=== PATIENT | female | born 1995 | race Caucasian/White ===

== ENCOUNTER 2020-09-17 23:57 | Emergency (ER) | payer OTHER ==
[~2020-09-17] VITALS: Ht 149.9 cm; Wt 88.9 kg
[2020-09-18 00:08] VITALS: BP_SYST 130
[2020-09-18] MEDS ORDERED: NACL 0.9% 1,000 ML IV ONE (00:45)
[2020-09-18] MEDS ORDERED: ONDANSETRON HCL 4 MG/2 ML VIAL IVP ONE (00:45)
[2020-09-18] MEDS ORDERED: AMPICILLIN SODIUM/SULBACTAM NA 3 GM in NS 100 ML IV ONE (00:45)
[2020-09-18] MEDS ORDERED: MORPHINE SULFATE 10 MG/ML VIAL IVP ONE (00:45)
[2020-09-18] MEDS ORDERED: AMPICILLIN SODIUM/SULBACTAM NA 3 GM VIAL ONE (00:52)
[2020-09-18 01:30] LABS: BASOPHILS % (AUTO) 0.4 % (0.0-2.0); EOSINOPHILS # (AUTO) 0.2 K/uL (0.0-0.4); EOSINOPHILS % (AUTO) 1.9 % (0.0-4.0); HEMATOCRIT 40.9 % (36-48); HEMOGLOBIN 13.5 g/dL (12.0-16.0); LYMPHOCYTES # (AUTO) 3.9 K/uL (1.0-5.5); MEAN CORPUSCULAR HEMOGLOBIN 27 pg (27-31); MEAN CORPUSCULAR HGB CONC 33 % (32-36); MEAN CORPUSCULAR VOLUME 82 fL (79.0-98.0); MONOCYTES # (AUTO) 0.7 K/uL (0.0-1.0); MONOCYTES % (AUTO) 5.9 % (1.7-9.3); NEUTROPHILS # (AUTO) 6.3 K/uL (1.8-7.7); NEUTROPHILS % (AUTO) 56.8 % (40.0-70.0); PLATELET COUNT (AUTO) 351 K/uL (130-430); RED BLOOD CELL COUNT(AUTO) 4.97 MIL/uL (4.2-6.2); RED CELL DISTRIBUTION WIDTH 13.4 % (9.0-15.0); WHITE BLOOD COUNT (AUTO) 11.2 K/uL (4.8-10.8)
[2020-09-18 01:37] LABS: CALCIUM 8.8 mg/dL (8.4-11.0); CREATININE 0.67 mg/dL (0.55-1.30); POTASSIUM 3.5 mmol/L (3.5-5.1)
[2020-09-18 01:42] LABS: ALBUMIN 3.9 g/dL (3.4-4.8); TOTAL BILIRUBIN 0.3 mg/dL (0.0-1.0)
[2020-09-18 02:24] LABS: BILIRUBIN,URINE NEGATIVE (NEGATIVE); BLOOD, URINE NEGATIVE (NEGATIVE); CLARITY/URINE CLEAR (CLEAR); COLOR,URINE YELLOW (YELLOW); GLUCOSE,URINE NEGATIVE (NEGATIVE); KETONES,URINE NEGATIVE (NEGATIVE); LEUKOCYTE ESTERASE ,URINE NEGATIVE (NEGATIVE); NITRITE, URINE NEGATIVE (NEGATIVE); PROTEIN URINE NEGATIVE (NEGATIVE); UROBILINOGEN,URINE 0.2 (0.2-1.0)
[2020-09-18] MEDS ORDERED: KETAMINE HCL 500 MG/10 ML VIAL ONE (04:28)
[2020-09-18] MEDS ORDERED: MIDAZOLAM HCL 5 MG/5 ML VIAL ONE (04:29)
[2020-09-18] MEDS ORDERED: MIDAZOLAM HCL 5 MG/5 ML VIAL IVP ONE (04:30)
[2020-09-18] MEDS ORDERED: KETAMINE 30 MG/3 ML SYRINGE IV ONE (04:30)
[2020-09-18] MEDS ORDERED: PHE25 PO (05:55)
[2020-09-18] MEDS ORDERED: AMOX-426 PO (05:55)
[2020-09-18] MEDS ORDERED: IBUP-1969 PO (05:55)
[2020-09-18 07:14] VITALS: BP_SYST 134
== END 2020-09-18 07:14 | disposition home or self-care (01) ==
LOC: SED 23:57
DX: K61.0 Anal abscess (principal)
CPT/HCPCS: 36415; 46050; 74177; 76376; 80053; 81003; 84703; 85025; 96361; 96365; 96375; 99152; 99285; J0295; J2250; J2270; J2405; J7030; Q9967

== ENCOUNTER 2020-09-24 14:43 | Inpatient (IN) | payer OTHER, SELFPAY ==
[~2020-09-24] VITALS: Ht 154.9 cm; Wt 87.1 kg
[2020-09-24 14:43] VITALS: BP_SYST 146
[~2020-09-24 14:43] MED LIST: AMOX-426 PO; IBUP-1969 PO; PHE25 PO
--- NOTE | 2020-09-24 14:43 | NUR ---
BROUGHT BACK TO BED #6 AND TRIAGED. REPORT GIVEN TO FLAKO
[2020-09-24] MEDS ORDERED: MORPHINE 4 MG INJ. 4 MG/ML VIAL IVP ONE (15:30)
[2020-09-24] MEDS ORDERED: NACL 0.9% 1,000 ML IV ONE (15:30)
[2020-09-24] MEDS ORDERED: DIPHENHYDRAMINE INJ 50 MG/ML VIAL IVP ONE (15:30)
[2020-09-24] MEDS ORDERED: PIPERACILLIN/TAZO 3.38 GM in D5W 50 ML IV ONE (15:30)
--- NOTE | 2020-09-24 15:30 | NUR ---
pt arrives from home w/ a non healing abcess to the left gluteal fold. Pt has had the abcess drained and packed. Pt has been experinecing increasing pain on the site
--- NOTE | 2020-09-24 15:35 | NUR ---
ER at bedside examining patient.
--- NOTE | 2020-09-24 15:38 | NUR ---
# 20 gauge angiocath placed to RAC. Use of asceptic technique. Opsite placed over site. Blood return noted. Blood for lab drawn from site. Flushed with 10 cc of normal saline. No evidence of infiltration noted. Patient tolerated well.
--- NOTE | 2020-09-24 15:42 | NUR ---
rapid covid swab collected and sent to lab
--- NOTE | 2020-09-24 15:45 | NUR ---
Carri nance in [facility] - 09/24/20 at 1611 by SDNURGD rapid covid swab collected and sent to the lab
[2020-09-24] MEDS ORDERED: PIPERACILLIN/TAZOBACTAM 3.375 GM/VIAL (ZOSYN) IV ONE (15:53)
--- NOTE | 2020-09-24 15:55 | NUR ---
Medicated the pt w/ Benadryl and Morphine per MD order. Rocephin currently infusing per MD order
[2020-09-24 16:02] LABS: BASOPHILS # (AUTO) 0.1 K/uL (0.0-0.2); BASOPHILS % (AUTO) 0.5 % (0.0-2.0); EOSINOPHILS # (AUTO) 0.2 K/uL (0.0-0.4); HEMATOCRIT 39.7 % (36-48); HEMOGLOBIN 12.9 g/dL (12.0-16.0); LYMPHOCYTES # (AUTO) 2.2 K/uL (1.0-5.5); LYMPHOCYTES % (AUTO) 23.1 % (20.5-51.5); MEAN CORPUSCULAR HEMOGLOBIN 27 pg (27-31); MEAN CORPUSCULAR HGB CONC 33 % (32-36); MEAN CORPUSCULAR VOLUME 82 fL (79.0-98.0); MONOCYTES # (AUTO) 0.7 K/uL (0.0-1.0); MONOCYTES % (AUTO) 7.7 % (1.7-9.3); NEUTROPHILS # (AUTO) 6.3 K/uL (1.8-7.7); NEUTROPHILS % (AUTO) 66.7 % (40.0-70.0); PLATELET COUNT (AUTO) 324 K/uL (130-430); RED BLOOD CELL COUNT(AUTO) 4.83 MIL/uL (4.2-6.2); RED CELL DISTRIBUTION WIDTH 13.2 % (9.0-15.0); WHITE BLOOD COUNT (AUTO) 9.5 K/uL (4.8-10.8)
[2020-09-24 16:05] LABS: BILIRUBIN,URINE NEGATIVE (NEGATIVE); BLOOD, URINE NEGATIVE (NEGATIVE); CLARITY/URINE CLEAR (CLEAR); COLOR,URINE YELLOW (YELLOW); GLUCOSE,URINE NEGATIVE (NEGATIVE); KETONES,URINE NEGATIVE (NEGATIVE); LEUKOCYTE ESTERASE ,URINE NEGATIVE (NEGATIVE); NITRITE, URINE NEGATIVE (NEGATIVE); PROTEIN URINE NEGATIVE (NEGATIVE); UROBILINOGEN,URINE 0.2 (0.2-1.0)
--- NOTE | 2020-09-24 16:15 | NUR ---
called for a Med Surg bed
[2020-09-24 16:26] LABS: CALCIUM 8.6 mg/dL (8.4-11.0); CREATININE 0.83 mg/dL (0.55-1.30); POTASSIUM 3.8 mmol/L (3.5-5.1)
[2020-09-24 16:30] LABS: INR 0.9 (0.8-1.2); PROTHROMBIN TIME 9.3 SECS (9.5-12.5)
[2020-09-24 16:32] LABS: ALBUMIN 3.4 g/dL (3.4-4.8); TOTAL BILIRUBIN 0.3 mg/dL (0.0-1.0)
--- NOTE | 2020-09-24 16:53 | NUR ---
Patient will be admitted to care of Dr. Caballero. Admitted to Med Surg unit. Will go to room 130-b. Belongings list completed. Complete and up to date summary report printed. SBAR report to be given at bedside with opportunity for questions.
--- NOTE | 2020-09-24 16:55 | NUR ---
Medication reconciliation completed with information provided by pt. Any prior medication reconciliation on file was reviewed and corrected.
--- NOTE | 2020-09-24 17:14 | NUR ---
CONSULTATION PAGED REASON FOR CONSULTATION:RECTAL ABSCESS WAS CONSULT CALLED?Y PERSON WHO WAS NOTIFIED:JORDAN CONSULTING PHYSICIAN:ALEXANDRIA CRUMP HOUSEKEEPING ASSISTANT SPECIALTY:SURGEON HOUSEKEEPING ASSISTANT PHONE NUMBER:[phone] REQUESTING PHYSICIAN:OJSE DANIEL BROCK
--- NOTE | 2020-09-24 17:15 | NUR ---
Notes Received patient from ER awake and oriented. Pain is control at this time. IVF of NS infusing from ER at this time.Oriented to call light use, phone and restroom. Provided water and supplies, no distress. enc to call for help as needed.
--- NOTE | 2020-09-24 17:20 | NUR ---
Notes Spoke to DR. CASILLAS and made aware of consults.
[2020-09-24 17:41] VITALS: BP_SYST 121
[2020-09-24 17:43] VITALS: BP_SYST 121
[2020-09-24] MEDS ORDERED: NALOXONE HCL 0.4 MG/ML AMP (NARCAN) IVP PRN ×2 (17:45)
[2020-09-24] MEDS ORDERED: MORPHINE 2 MG/ML INJ. SYRINGE IVP PRN (17:45)
[2020-09-24] MEDS ORDERED: PROMETHAZINE HCL 25 MG TABLET PO PRN (17:45)
[2020-09-24] MEDS ORDERED: LORazepam 2 MG/ML VIAL IVP PRN (17:45)
[2020-09-24] MEDS ORDERED: IBUPROFEN 600 MG TABLET PO PRN (17:45)
[2020-09-24] MEDS ORDERED: ACETAMINOPHEN 325 MG TABLET PO PRN (17:45)
--- NOTE | 2020-09-24 17:54 | NUR ---
MD rounds Dr. Caballero here to see patient.
[2020-09-24] MEDS ORDERED: PIPERACILLIN/TAZO 3.375/DEX-IS 50 ML IV SCH (18:00)
--- NOTE | 2020-09-24 18:08 | NUR ---
CONSULTATION PAGED REASON FOR CONSULTATION:PERIRECTAL ABSCESS WAS CONSULT CALLED?Y PERSON WHO WAS NOTIFIED:ELEAZAR CONSULTING PHYSICIAN:STEFANO ELLIOTT WEASAND TRIMMER SPECIALTY:ID WEASAND TRIMMER PHONE NUMBER:[phone] REQUESTING PHYSICIAN:JOSE DANIEL BROCK
--- NOTE | 2020-09-24 18:25 | NUR ---
Notes- Resting at this time, Will endorse to take picture on perirectal abscess.
--- NOTE | 2020-09-24 19:50 | NUR ---
RN ROUNDS RECEIVED REPORT FROM DAY NURSE, PATIENT SITTING UP IN BED, AOX4, ON ROOM AIR, DENIES ANY PAIN OR DISCOMFORT AT THIS TIME, VITAL SIGNS STABLE, IV LINE TO RIGHT AC INTACT AND PATENT, SALINE LOCKED, PLAN OF CARE DISCUSSED WITH PATIENT, VERBALIZED UNDERSTANDING COMPLIANT, PATIENT REFUSING TO HAVE LYNCH CATHETER PLACED, ORIENTED TO USE CALL LIGHT FOR NURSE ASSISTANCE, SAFETY MEASURES IN PLACE.
[2020-09-24 20:21] VITALS: BP_SYST 133
[2020-09-24] MEDS: DOCUSATE SODIUM 100 MG CAPSULE PO SCH (20:55)
[2020-09-24] MEDS ORDERED: NORMAL SALINE 5 ML DISP.SYRIN IVF SCH (22:00)
[2020-09-24] MEDS: NORMAL SALINE 5 ML DISP.SYRIN IVF SCH (22:14)
--- NOTE | 2020-09-24 22:19 | NUR ---
RN ROUNDS PATIENT RESTING QUIETLY IN BED, RESPIRATIONS EVEN AND UNLABORED, CALL LIGHT WITHIN REACH, SAFETY MEASURES IN PLACE.
[2020-09-24] MEDS: PIPERACILLIN/TAZO 3.375/DEX-IS 50 ML IV SCH (23:00)
[2020-09-24] MEDS: HYDROcodone/ACETAMIN 10-325 MG TAB PO PRN (23:47)
[2020-09-25 00:09] VITALS: BP_SYST 100
--- NOTE | 2020-09-25 00:39 | NUR ---
RN ROUNDS PATIENT WAS C/O OF PAIN, MEDICATED WITH NORCO 1 TAB FOR PAIN MANAGEMENT, DUE ANTIBIOTICS ADMINISTERED, IV LINE REMAINS INTACT AND PATENT.
[2020-09-25] MEDS: PIPERACILLIN/TAZO 3.375/DEX-IS 50 ML IV SCH ×3 (04:58→18:06)
[2020-09-25] MEDS: NORMAL SALINE 5 ML DISP.SYRIN IVF SCH ×3 (04:59→21:25)
--- NOTE | 2020-09-25 06:43 | NUR ---
RN ROUNDS PATIENT RESTING QUIETLY IN BED, DUE ANTIBIOTICS ADMINISTERED, IV LINE REMAINS INTACT AND PATENT. PICTURE TAKEN OF ABSCESS, PATIENT NEEDS ATTENDED TO, SAFETY AND FALL PRECAUTIONS MAINTAINED.
[2020-09-25 07:08] LABS: BASOPHILS % (AUTO) 0.3 % (0.0-2.0); EOSINOPHILS # (AUTO) 0.3 K/uL (0.0-0.4); EOSINOPHILS % (AUTO) 3.3 % (0.0-4.0); HEMATOCRIT 36.9 % (36-48); HEMOGLOBIN 12.2 g/dL (12.0-16.0); LYMPHOCYTES # (AUTO) 2.7 K/uL (1.0-5.5); LYMPHOCYTES % (AUTO) 33.7 % (20.5-51.5); MEAN CORPUSCULAR HEMOGLOBIN 27 pg (27-31); MEAN CORPUSCULAR HGB CONC 33 % (32-36); MEAN CORPUSCULAR VOLUME 82 fL (79.0-98.0); MONOCYTES # (AUTO) 0.6 K/uL (0.0-1.0); MONOCYTES % (AUTO) 7.3 % (1.7-9.3); NEUTROPHILS # (AUTO) 4.5 K/uL (1.8-7.7); NEUTROPHILS % (AUTO) 55.4 % (40.0-70.0); PLATELET COUNT (AUTO) 307 K/uL (130-430); RED BLOOD CELL COUNT(AUTO) 4.49 MIL/uL (4.2-6.2); RED CELL DISTRIBUTION WIDTH 13.4 % (9.0-15.0); WHITE BLOOD COUNT (AUTO) 8.1 K/uL (4.8-10.8)
[2020-09-25 07:28] LABS: ALBUMIN 2.9 g/dL (3.4-4.8); CALCIUM 8.5 mg/dL (8.4-11.0); CREATININE 0.65 mg/dL (0.55-1.30); POTASSIUM 3.6 mmol/L (3.5-5.1); TOTAL BILIRUBIN 0.2 mg/dL (0.0-1.0)
[2020-09-25 09:00] VITALS: BP_SYST 121
[2020-09-25 09:26] LABS: C-REACTIVE PROTEIN QUANT 2.8 mg/dL (0-0.5)
[2020-09-25 09:40] LABS: CORRECTED WHITE BLOOD COUNT 8.1 K/uL (4.5-11.0)
--- NOTE | 2020-09-25 09:56 | NUR ---
DR BALTAZAR IBRAHIM SURGEON CAME AND SAID NO SURGERY. 3 X TIMES HOTS SITZ BATH AND NEEDS WALKING MANY TIMES.
[2020-09-25] MEDS: DOCUSATE SODIUM 100 MG CAPSULE PO SCH ×2 (10:39→21:13)
[2020-09-25 10:48] LABS: ERYTHROCYTE SEDIMENTATION RATE 13 MM/HR (0-20)
[2020-09-25 12:16] VITALS: BP_SYST 120
[2020-09-25] MEDS: HYDROcodone/ACETAMIN 10-325 MG TAB PO PRN (12:37)
--- NOTE | 2020-09-25 13:25 | NUR ---
WOUND EVALUATION: Wound Consult received from Dr. Binh Caballero. Thank you, Dr. Caballero, for the consult. Patient received in a Pattie Bed with a mattress, awake, alert, and oriented. Patient is unable to turn independently. Bhupendra Score is a 20. Past Medical History: Recurrent Sita-Rectal abscess, s/p I&D of Sita-Rectal abscess, Tonsillectomy. Recent Labs: WBC 8.1, RBC 4.49, hemoglobin 12.2, hematocrit 36.9, ESR 13, chloride 110, alkaline phosphatase 70, C-reactive protein 2.8, serum total protein 5.9, albumin 2.9, PT 9.3, glucose 100 (09/24), 94 (09/25). Microbiology: Blood culture results x2 in progress. Intrinsic factors that delay wound healing: Recurrent non-healing Sita-Rectal Abscess, Hyperglycemia. Extrinsic factors that delay wound healing: Decreased mobility. Wound Assessment: 1. Left Sita-Rectal area: Abscess, present on admission. Site has pink scar tissue, white macerated tissue, and a few small areas of pink tissue. No odor, small yellow purulent drainage. Sita-wound intact. Measures 2.5 cm x 2.9 cm, superficial depth. Recommend: Cleanse wound with normal saline. Apply SurePrep to sita-wound. Cut alginate dressing to size and place over wound site. Cover with nonadhesive foam dressing, cut to size. Secure with transparent dressings. Perform wound care daily, and as needed for dressing soiling or dislodgement. Also recommend: Encourage and assist patient as needed with repositioning side to side only every 2 hours with pillow support and off-load pressure areas with pillows for pressure re-distribution. Offload the left perirectal wound area at all times. Offload, elevate and float bilateral heels with pillows. Perform skin care and monitor skin integrity Q shift. Use moisture barrier cream on buttocks and other moisture susceptible areas QID and as needed for soiling.
--- NOTE | 2020-09-25 19:30 | NUR ---
OPENING NOTES: Received report from dayshift nurse. Patient is resting in bed, alert and oriented. She is on room air, tolerating well. Ensured all safety precautions. Bed is locked and in the lowest position. Call light within reach.
[2020-09-25 20:00] VITALS: BP_SYST 114
[2020-09-26] MEDS: PIPERACILLIN/TAZO 3.375/DEX-IS 50 ML IV SCH ×4 (00:12→18:32)
[2020-09-26 00:15] VITALS: BP_SYST 115
[2020-09-26] MEDS: NORMAL SALINE 5 ML DISP.SYRIN IVF SCH ×3 (05:19→21:37)
[2020-09-26 06:55] LABS: BASOPHILS % (AUTO) 0.4 % (0.0-2.0); EOSINOPHILS # (AUTO) 0.2 K/uL (0.0-0.4); EOSINOPHILS % (AUTO) 2.8 % (0.0-4.0); HEMATOCRIT 39.5 % (36-48); LYMPHOCYTES # (AUTO) 2.6 K/uL (1.0-5.5); LYMPHOCYTES % (AUTO) 29.1 % (20.5-51.5); MEAN CORPUSCULAR HEMOGLOBIN 27 pg (27-31); MEAN CORPUSCULAR HGB CONC 33 % (32-36); MEAN CORPUSCULAR VOLUME 82 fL (79.0-98.0); MONOCYTES # (AUTO) 0.6 K/uL (0.0-1.0); MONOCYTES % (AUTO) 6.9 % (1.7-9.3); NEUTROPHILS # (AUTO) 5.4 K/uL (1.8-7.7); NEUTROPHILS % (AUTO) 60.8 % (40.0-70.0); PLATELET COUNT (AUTO) 321 K/uL (130-430); RED CELL DISTRIBUTION WIDTH 13.4 % (9.0-15.0); WHITE BLOOD COUNT (AUTO) 8.8 K/uL (4.8-10.8)
[2020-09-26 07:07] LABS: CALCIUM 8.6 mg/dL (8.4-11.0); CREATININE 0.67 mg/dL (0.55-1.30); POTASSIUM 3.9 mmol/L (3.5-5.1)
--- NOTE | 2020-09-26 07:26 | NUR ---
CLOSING NOTES: Patient is resting in bed, alert and oriented. She is on room air, tolerating well. IV on RFA with dry and intact dressing. Ensured all safety precautions. Bed is locked and in the lowest position. Call light within reach. All needs were met throughout shift. I have endorse to dayshift nurse.
--- NOTE | 2020-09-26 07:45 | NUR ---
OPENING NOTES PATIENT AAOX 4. LUNGS BILATERALLY CLEAR. OBESE. ABDOMEN SOFT AND NON DISTENDED. ON THE RECTAL WOUND NO DRAINAGE NOTED. DRY. HAS IV ACCESS ON THE RT AC $20 PATENT/DRY. CALL LIGHTS WITHIN REACH. BED LOW POSITION, ALARMED AND LOCKED. WILL CONTINUE TO MONITOR PATIENTS STATUS.
[2020-09-26 08:08] LABS: C-REACTIVE PROTEIN QUANT 2.2 mg/dL (0-0.5)
[2020-09-26] MEDS: DOCUSATE SODIUM 100 MG CAPSULE PO SCH ×2 (09:21→21:36)
[2020-09-26] MEDS: HYDROcodone/ACETAMIN 10-325 MG TAB PO PRN (09:24)
[2020-09-26 09:27] VITALS: BP_SYST 125
[2020-09-26 09:35] LABS: ERYTHROCYTE SEDIMENTATION RATE 16 MM/HR (0-20)
[2020-09-26 12:28] VITALS: BP_SYST 132
[2020-09-26 18:16] VITALS: BP_SYST 122
--- NOTE | 2020-09-26 18:55 | NUR ---
CLOSING NOTES PATIENT WENT TO THE BATHROOM AMBULATORY. STILL WITH RT AC #20 SALINE LOCK. IV ZOZYN GIVEN. NO S/S OF DISTRESS/NOR PAIN NOTED. CALL LIGHTS WITHIN REACH. BED LOW POSITION. ALARMED AND LOCKED. JUST HAD HOT SITZ BATH THE THIRD TIME. INSTRUCTED PATIENT TO HAVE X 3 TIMES A DAY AND WHILE AT HOME. PLASTIC BOTTLE TO USED AT HOME FOR THE SITZ BATH WHEN DISCHARGE. INFORMED PATIENT THAT NITE NURSE WILL THE DRESSING CHANGED ON HER RECTAL AREA. ENDORSED TO INCOMING NURSE.
--- NOTE | 2020-09-26 19:35 | NUR ---
OPENING NOTES PATIENT A&OX4 RESTING IN BED. AMBULATORY. BREATHING NONLABORED TO ROOM AIR. IV ON RAC #20 SALINE LOCKED. PT HAS REGULAR DIET. NO S/S OF DISTRESS. WILL CONTINUE TO MONITOR.
[2020-09-26 20:00] VITALS: BP_SYST 129
--- NOTE | 2020-09-26 21:25 | NUR ---
RN ROUNDS PT TOLERATED MEDICATIONS. GIVEN MOTRIN FOR PAIN.
--- NOTE | 2020-09-26 22:25 | NUR ---
RN ROUNDS PT VITAL SIGNS STABLE. WOUND DRESSING DONE.
--- NOTE | 2020-09-27 | NUR ---
RN ROUNDS PT VITAL SIGNS STABLE. WILL CTM
[2020-09-27] MEDS: PIPERACILLIN/TAZO 3.375/DEX-IS 50 ML IV SCH ×3 (00:39→11:15)
[2020-09-27 00:42] VITALS: BP_SYST 122
[2020-09-27] MEDS: NORMAL SALINE 5 ML DISP.SYRIN IVF SCH ×2 (05:52→13:50)
--- NOTE | 2020-09-27 06:40 | NUR ---
CLOSING NOTE PATIENT A&OX4 RESTING IN BED. AMBULATORY. BREATHING NONLABORED TO ROOM AIR. IV ON RAC #20 SALINE LOCKED. PT HAS REGULAR DIET. NO S/S OF DISTRESS. WILL ENDORSE TO DAYSHIFT RN
[2020-09-27 06:52] LABS: BASOPHILS % (AUTO) 0.4 % (0.0-2.0); EOSINOPHILS # (AUTO) 0.3 K/uL (0.0-0.4); HEMATOCRIT 37.7 % (36-48); HEMOGLOBIN 12.6 g/dL (12.0-16.0); LYMPHOCYTES # (AUTO) 2.9 K/uL (1.0-5.5); LYMPHOCYTES % (AUTO) 31.6 % (20.5-51.5); MEAN CORPUSCULAR HEMOGLOBIN 27 pg (27-31); MEAN CORPUSCULAR HGB CONC 33 % (32-36); MEAN CORPUSCULAR VOLUME 82 fL (79.0-98.0); MONOCYTES # (AUTO) 0.6 K/uL (0.0-1.0); MONOCYTES % (AUTO) 6.9 % (1.7-9.3); NEUTROPHILS # (AUTO) 5.2 K/uL (1.8-7.7); NEUTROPHILS % (AUTO) 58.1 % (40.0-70.0); PLATELET COUNT (AUTO) 330 K/uL (130-430); RED BLOOD CELL COUNT(AUTO) 4.59 MIL/uL (4.2-6.2); RED CELL DISTRIBUTION WIDTH 13.1 % (9.0-15.0)
[2020-09-27 06:53] LABS: CALCIUM 8.5 mg/dL (8.4-11.0); CREATININE 0.86 mg/dL (0.55-1.30); POTASSIUM 4.2 mmol/L (3.5-5.1)
[2020-09-27 08:45] LABS: C-REACTIVE PROTEIN QUANT 2.3 mg/dL (0-0.5)
[2020-09-27] MEDS: DOCUSATE SODIUM 100 MG CAPSULE PO SCH (08:47)
--- NOTE | 2020-09-27 08:48 | NUR ---
Scheduled po medication given per order. Patient resting comfortably in bed with no complaint of pain. Patient stable at this time.
[2020-09-27 08:50] VITALS: BP_SYST 119
[2020-09-27 10:23] LABS: ERYTHROCYTE SEDIMENTATION RATE 16 MM/HR (0-20)
--- NOTE | 2020-09-27 11:15 | NUR ---
Scheduled IV abx given per order. Patient stable at this time.
--- NOTE | 2020-09-27 12:25 | NUR ---
Patient sitting in bed, eating lunch. No distress noted and no complaint of pain. Patient stable at this time.
[2020-09-27 12:34] VITALS: BP_SYST 123
--- NOTE | 2020-09-27 13:50 | NUR ---
Patient resting comfortably in bed with no distress noted. Patient stable.
[2020-09-27] MEDS ORDERED: IBUP-1969 PO (14:15)
[2020-09-27] MEDS ORDERED: LEVO500T89 PO (14:15)
[2020-09-27 14:20] VITALS: BP_SYST 123
--- NOTE | 2020-09-27 16:02 | NUR ---
Discharge instructions Both written and verbal discharge instructions given to patient. Exit care provided. Patient verbalized understanding. Patient given medication reconciliation form. MD discussed with patient the results and treatment provided. Ambulatory with steady gait for discharge to home. Patient in stable condition. ID band removed. Peripheral IV removed intact with no active bleeding; pressure dressing applied to site. Prescription for levofloxacin and ibuprofen given to patient. Patient educated on pain management. All belongings with patient. Patient sitting on side of bed with no complaint of pain.
[2020-09-27 16:23] VITALS: BP_SYST 120
--- NOTE | 2020-09-27 16:30 | NUR ---
Discharge Patient discharged to home in stable condition.
== END 2020-09-27 16:30 | disposition home or self-care (01) | DRG 254 ==
LOC: SED 14:43 → SMU 15:43
PROVIDERS: ADMIT Preventive Medicine Preventive Medicine/Occupational Environmental Medicine; ATTEND Preventive Medicine Preventive Medicine/Occupational Environmental Medicine
DX: K61.1 Rectal abscess (principal); E87.8 Other disorders of electrolyte and fluid balance, not elsewhere classified; L02.31 Cutaneous abscess of buttock; K61.0 Anal abscess; Z20.822 Contact with and (suspected) exposure to COVID-19; R73.9 Hyperglycemia, unspecified; R00.0 Tachycardia, unspecified; R03.0 Elevated blood-pressure reading, without diagnosis of hypertension; L73.2 Hidradenitis suppurativa; Z79.899 Other long term (current) drug therapy
CPT/HCPCS: 36415; 76376; 80048; 80053; 81003; 83605; 85025; 85610-TC; 85651-TC; 85730-TC; 86140; 87040-TC; 87070-TC; 87075-TC; 87186-TC; 96365; 96375; 99285; J1200; J2270; J2543; Q0169; Q9967

== ENCOUNTER 2020-11-11 14:51 | Inpatient (IN) | payer OTHER, SELFPAY ==
[~2020-11-11] VITALS: Ht 149.9 cm; Wt 93.4 kg
[~2020-11-11 14:51] MED LIST changes: -AMOX-426 PO; +LEVO500T89 PO
[2020-11-11 15:09] VITALS: BP_SYST 149
[2020-11-11] MEDS ORDERED: ONDANSETRON HCL 4 MG/2 ML VIAL IVP ONE (19:00)
[2020-11-11] MEDS ORDERED: NACL 0.9% 1,000 ML IV ONE (19:00)
[2020-11-11] MEDS ORDERED: MORPHINE 4 MG INJ. 4 MG/ML VIAL IVP ONE (19:00)
[2020-11-11] MEDS ORDERED: metroNIDAZOLE 500 mg/NS 100 ML IV ONE ×2 (19:15→23:08)
[2020-11-11] MEDS ORDERED: OXYCODONE/ACETAMINOPHEN 5-325 TABLET PO ONE (19:15)
[2020-11-11] MEDS ORDERED: PIPERACILLIN/TAZO 3.375 GM in NS 50 ML IV ONE (19:15)
[2020-11-11 19:32] LABS: BASOPHILS # (AUTO) 0.1 K/uL (0.0-0.2); BASOPHILS % (AUTO) 0.7 % (0.0-2.0); EOSINOPHILS # (AUTO) 0.2 K/uL (0.0-0.4); EOSINOPHILS % (AUTO) 1.7 % (0.0-4.0); HEMOGLOBIN 13.2 g/dL (12.0-16.0); LYMPHOCYTES # (AUTO) 2.9 K/uL (1.0-5.5); LYMPHOCYTES % (AUTO) 24.2 % (20.5-51.5); MEAN CORPUSCULAR HEMOGLOBIN 28 pg (27-31); MEAN CORPUSCULAR HGB CONC 34 % (32-36); MEAN CORPUSCULAR VOLUME 82 fL (79.0-98.0); MONOCYTES # (AUTO) 0.8 K/uL (0.0-1.0); MONOCYTES % (AUTO) 6.5 % (1.7-9.3); NEUTROPHILS # (AUTO) 7.9 K/uL (1.8-7.7); NEUTROPHILS % (AUTO) 66.9 % (40.0-70.0); PLATELET COUNT (AUTO) 353 K/uL (130-430); RED BLOOD CELL COUNT(AUTO) 4.76 MIL/uL (4.2-6.2); RED CELL DISTRIBUTION WIDTH 13.8 % (9.0-15.0); WHITE BLOOD COUNT (AUTO) 11.8 K/uL (4.8-10.8)
[2020-11-11 19:43] LABS: CALCIUM 9.7 mg/dL (8.4-11.0); CREATININE 0.61 mg/dL (0.55-1.30); POTASSIUM 4.2 mmol/L (3.5-5.1)
[2020-11-11 19:50] LABS: TOTAL BILIRUBIN 0.2 mg/dL (0.0-1.0)
--- NOTE | 2020-11-11 21:32 | NUR ---
Patient to [facility] for evaluation. Side rails up.
--- NOTE | 2020-11-11 21:45 | NUR ---
Pt BIB family to ED C/O reoccurring left buttock abscess associated with mild to moderate, intermittent, nonradiating pain. The patient reports that she has had the same abscess that required admission at this hospital for 4 days on 09/24. No alleviating or exacerbating factors
[2020-11-11] MEDS ORDERED: MORPHINE 4 MG INJ. 4 MG/ML VIAL ONE (21:54)
[2020-11-11] MEDS ORDERED: PIPERACILLIN/TAZOBACTAM 3.375 GM/VIAL (ZOSYN) IV ONE (21:55)
[2020-11-11] MEDS ORDERED: ONDANSETRON HCL 4 MG/2 ML VIAL ONE (21:55)
--- NOTE | 2020-11-11 22:00 | NUR ---
Dr. Sommer on license of [facility] chairside for pt lynn
--- NOTE | 2020-11-11 23:00 | NUR ---
VSS no s/s of acute distress Resting on gurney rails up
--- NOTE | 2020-11-12 | NUR ---
Dr. Sommer bedside for pt abscess eval with clinical care leader
[2020-11-12 00:24] LABS: BILIRUBIN,URINE NEGATIVE (NEGATIVE); BLOOD, URINE NEGATIVE (NEGATIVE); CLARITY/URINE CLEAR (CLEAR); COLOR,URINE YELLOW (YELLOW); GLUCOSE,URINE NEGATIVE (NEGATIVE); KETONES,URINE NEGATIVE (NEGATIVE); LEUKOCYTE ESTERASE ,URINE NEGATIVE (NEGATIVE); NITRITE, URINE NEGATIVE (NEGATIVE); PROTEIN URINE NEGATIVE (NEGATIVE); UROBILINOGEN,URINE 0.2 (0.2-1.0)
--- NOTE | 2020-11-12 01:05 | NUR ---
Pt resting in comfort on gurney rails up
--- NOTE | 2020-11-12 02:10 | NUR ---
Pt remains in stable condition, resting on gurney with rails up
--- NOTE | 2020-11-12 03:15 | NUR ---
VSS no s/s of acute distress, asleep on gurney in comfort
--- NOTE | 2020-11-12 04:20 | NUR ---
No s/s of acute distress, asleep on ER gurmiami rails up
--- NOTE | 2020-11-12 05:15 | NUR ---
Pt resting comfortable on gurney with rails up
--- NOTE | 2020-11-12 06:03 | NUR ---
Lab at bedside for Pt blood draw for 2nd Lactate level
[2020-11-12] MEDS ORDERED: IBUPROFEN 600 MG TABLET PO PRN (06:45)
[2020-11-12] MEDS ORDERED: LORazepam 2 MG/ML VIAL IVP PRN (06:45)
[2020-11-12] MEDS ORDERED: ACETAMINOPHEN 325 MG TABLET PO PRN ×2 (06:45→07:45)
[2020-11-12] MEDS ORDERED: HYDROcodone/ACETAMIN 5-325 MG TAB (NORCO/ VICODIN) PO PRN (06:45)
[2020-11-12] MEDS ORDERED: PROMETHAZINE HCL 25 MG TABLET PO PRN (06:45)
[2020-11-12] MEDS ORDERED: NALOXONE HCL 0.4 MG/ML AMP (NARCAN) IVP PRN ×2 (06:45)
--- NOTE | 2020-11-12 07:05 | NUR ---
Assumed care of patient, report received from SONU Marie. Pt currently resting in bed, no acute distress noted.
[2020-11-12] MEDS ORDERED: ONDANSETRON HCL 4 MG/2 ML VIAL IVP ONE (08:26)
[2020-11-12] MEDS ORDERED: MIDAZOLAM HCL 5 MG/5 ML VIAL IVP ONE (08:26)
[2020-11-12] MEDS ORDERED: fentaNYL CITRATE/PF 100 MCG/2 ML AMP IVP ONE (08:26)
[2020-11-12] MEDS ORDERED: SEVOFLURANE 15 MIN GAS INH ONE (08:26)
[2020-11-12] MEDS ORDERED: METOCLOPRAMIDE HCL 10 MG/2 ML VIAL IVP ONE (08:26)
[2020-11-12] MEDS ORDERED: LR 1,000 ML IV.SOLN IV ONE (08:26)
[2020-11-12] MEDS ORDERED: PROPOFOL 200MG/ 20ML VIAL (DIPRIVAN) IV ONE (08:26)
[2020-11-12] MEDS ORDERED: ACETAMINOPHEN I.V. 1000 MG /100 ML IVPB PREMIX IV ONE (08:26)
[2020-11-12] MEDS ORDERED: DEXAMETHASONE SOD PHOSPHATE 10 MG/ML VIAL IVP ONE (08:26)
[2020-11-12] MEDS ORDERED: SUGAMMADEX SODIUM 200 MG/2 ML VIAL IV ONE (08:26)
[2020-11-12] MEDS ORDERED: ROCURONIUM BROMIDE 10 MG/ML (ZEMURON) IV ONE (08:26)
--- NOTE | 2020-11-12 08:40 | NUR ---
Breakfast tray provided to patient.
[2020-11-12] MEDS ORDERED: levoFLOXacin 500 MG TABLET PO ONE (09:00)
[2020-11-12] MEDS: HYDROcodone/ACETAMIN 10-325 MG TAB PO PRN ×2 (10:29→17:24)
--- NOTE | 2020-11-12 10:30 | NUR ---
Pt currently resting in [facility], no distress noted.
--- NOTE | 2020-11-12 12:30 | NUR ---
Offered pt lunch tray, declined.
[2020-11-12] MEDS: NORMAL SALINE 5 ML DISP.SYRIN IVF SCH ×2 (13:56→22:00)
[2020-11-12] MEDS ORDERED: NORMAL SALINE 5 ML DISP.SYRIN IVF SCH (14:00)
--- NOTE | 2020-11-12 14:45 | NUR ---
Patient will be admitted to care of Dr. Caballero. Admitted to Med-surg unit. Will go to room 109A. Belongings list completed. Complete and up to date summary report printed. SBAR report to be given at bedside with opportunity for questions.
[2020-11-12 15:13] VITALS: BP_SYST 131
--- NOTE | 2020-11-12 15:45 | NUR ---
ADMIT NOTE Received pt from ER to the floor with a diagnosis of RECTAL ABSCESS. Admission process initiated. patient oriented to pain management, safety and call light-teach back done.
--- NOTE | 2020-11-12 16:55 | NUR ---
CONSULTATION: REASON FOR CONSULT: RECTAL ABCESS CONSULTING PHYSICIAN: JASVIR LEDESMA ORDERED BY: Marcy MELCHOR SPOKE WITH VIVEK [phone]
--- NOTE | 2020-11-12 17:01 | NUR ---
PATIENT STATED COMFORTABLE AT THIS TIME . NEEDS ATTENDED
--- NOTE | 2020-11-12 18:40 | NUR ---
CLOSING HERMINIO Mireles [place] re consult. Patient denies pain at this time.
[2020-11-12 20:25] VITALS: BP_SYST 136
[2020-11-13] MEDS: NORMAL SALINE 5 ML DISP.SYRIN IVF SCH ×2 (05:15→21:12)
[2020-11-13 07:24] LABS: BASOPHILS % (AUTO) 0.4 % (0.0-2.0); EOSINOPHILS # (AUTO) 0.2 K/uL (0.0-0.4); EOSINOPHILS % (AUTO) 2.3 % (0.0-4.0); HEMATOCRIT 37.2 % (36-48); HEMOGLOBIN 12.6 g/dL (12.0-16.0); LYMPHOCYTES # (AUTO) 2.6 K/uL (1.0-5.5); LYMPHOCYTES % (AUTO) 30.6 % (20.5-51.5); MEAN CORPUSCULAR HEMOGLOBIN 28 pg (27-31); MEAN CORPUSCULAR HGB CONC 34 % (32-36); MEAN CORPUSCULAR VOLUME 82 fL (79.0-98.0); MONOCYTES # (AUTO) 0.6 K/uL (0.0-1.0); MONOCYTES % (AUTO) 6.5 % (1.7-9.3); NEUTROPHILS # (AUTO) 5.2 K/uL (1.8-7.7); NEUTROPHILS % (AUTO) 60.2 % (40.0-70.0); PLATELET COUNT (AUTO) 326 K/uL (130-430); RED BLOOD CELL COUNT(AUTO) 4.56 MIL/uL (4.2-6.2); RED CELL DISTRIBUTION WIDTH 13.9 % (9.0-15.0); WHITE BLOOD COUNT (AUTO) 8.6 K/uL (4.8-10.8)
--- NOTE | 2020-11-13 07:35 | NUR ---
PT SLEPT MOST OF SHIFT, NO C/O PAIN OR DISCOMFORT. MAINTAINED NPO FOR POS I/D OF BUTTOCKS ABSCESS. RESP REG NON-LABORED, NO S/S OF DISTRESS NOTED. REPORT TO AM RN.
[2020-11-13 08:00] VITALS: BP_SYST 103
[2020-11-13 09:25] LABS: ERYTHROCYTE SEDIMENTATION RATE 12 MM/HR (0-20)
[2020-11-13 10:35] LABS: CALCIUM 8.7 mg/dL (8.4-11.0); CREATININE 0.65 mg/dL (0.55-1.30); POTASSIUM 3.8 mmol/L (3.5-5.1)
--- NOTE | 2020-11-13 13:42 | NUR ---
seen by Dr Sorensen @ 0900 AM with order for Rectal exam under anesthesia fistulectomy VS Seton placement tomorrow. procedure explained by MD. Patient said the procedure verbally understood. consent signed and obtained. NPO postmidnight instructed.
[2020-11-13 14:37] LABS: C-REACTIVE PROTEIN QUANT 2.3 mg/dL (0-0.5)
--- NOTE | 2020-11-13 16:31 | NUR ---
PUT ANOTHER CALL TO GEN SURGEON DR ROLAND SIMEON, RE: CLARIFICATION OF PREP FOR SURGERY TOMORROW. SPOKE TO YOLANDA.
--- NOTE | 2020-11-13 19:30 | NUR ---
PT WAS INSTRUCTED ON NOTHING BY MOUTH AFTER MIDNIGHT FOR SURGERY TOMORROW AND PT VERBALIZED UNDERSTANDING.
[2020-11-13 20:00] VITALS: BP_SYST 115
[2020-11-13] MEDS: HYDROcodone/ACETAMIN 10-325 MG TAB PO PRN (21:11)
--- NOTE | 2020-11-13 21:11 | NUR ---
NORCO 10/325MG WAS GIVEN PO PER PT'S REQUEST FOR C/O RECTAL PAIN. NO C/O RECTAL BLEEDING. PT WAS INSTRUCTED NOT TO GET OUT OF BED IF SHE FEELS DIZZY OR DROWSY AND PT VERBALIZED UNDERSTANDING. CALL LIGHT IS WITH PT AND BED IS IN THE LOWEST/LOCKED POSITIONS.
[2020-11-13] MEDS: levoFLOXacin 500 MG TABLET PO SCH (21:19)
[2020-11-14] MEDS: NORMAL SALINE 5 ML DISP.SYRIN IVF SCH (06:00)
--- NOTE | 2020-11-14 06:20 | NUR ---
CHG BATH TAKEN AND PT CHANGED HER HOSPITAL GOWN. COMPLETE BED LINEN CHANGE DONE.
[2020-11-14 06:39] LABS: BASOPHILS % (AUTO) 0.5 % (0.0-2.0); EOSINOPHILS # (AUTO) 0.2 K/uL (0.0-0.4); EOSINOPHILS % (AUTO) 2.2 % (0.0-4.0); HEMATOCRIT 39.1 % (36-48); HEMOGLOBIN 13.3 g/dL (12.0-16.0); LYMPHOCYTES # (AUTO) 3.1 K/uL (1.0-5.5); LYMPHOCYTES % (AUTO) 32.7 % (20.5-51.5); MEAN CORPUSCULAR HEMOGLOBIN 28 pg (27-31); MEAN CORPUSCULAR HGB CONC 34 % (32-36); MEAN CORPUSCULAR VOLUME 81 fL (79.0-98.0); MONOCYTES # (AUTO) 0.7 K/uL (0.0-1.0); NEUTROPHILS # (AUTO) 5.4 K/uL (1.8-7.7); NEUTROPHILS % (AUTO) 57.6 % (40.0-70.0); PLATELET COUNT (AUTO) 369 K/uL (130-430); RED BLOOD CELL COUNT(AUTO) 4.83 MIL/uL (4.2-6.2); RED CELL DISTRIBUTION WIDTH 13.8 % (9.0-15.0); WHITE BLOOD COUNT (AUTO) 9.5 K/uL (4.8-10.8)
[2020-11-14 06:51] LABS: PROTHROMBIN TIME 10.2 SECS (9.5-12.5)
--- NOTE | 2020-11-14 06:58 | NUR ---
PT IS AWAKE AND RESTING QUIETLY IN BED. ALL PT'S NEEDS WERE ATTENDED TO. PT HAS BEEN NPO SINCE MIDNIGHT AND WAITING TO BE TAKEN TO OR FOR SURGERY. WILL ENDORSE TO DAY SHIFT NURSE.
[2020-11-14 07:26] LABS: CREATININE 0.64 mg/dL (0.55-1.30); POTASSIUM 3.9 mmol/L (3.5-5.1)
[2020-11-14 08:00] VITALS: BP_SYST 128
--- NOTE | 2020-11-14 08:00 | NUR ---
FOR FISTULECTOMY/SETON PLACEMENT TODAY. NPO MAINTAINED. SAID SHE IS READY FOR SURGERY. ANESTHESIOLOGIST IS ON HER BEDSIDE. CONSENT SIGNED. TO OR @ 0820 AM ACCOMPANIED BY OR NURSES. PREOP CHECKLIST COMPLETED.VITAL SIGNS TAKEN. NO FEVER.
[2020-11-14] MEDS ORDERED: ACETAMINOPHEN I.V. 1000 MG 100 ML IV ONE (09:19)
[2020-11-14] MEDS ORDERED: HYDROmorphone 2 MG/ML VIAL IVP PRN ×2 (09:30)
[2020-11-14] MEDS ORDERED: HYDROmorphone 1 MG/ML INJ. CARTRIDGE IVP PRN (09:30)
[2020-11-14] MEDS ORDERED: LR 1,000 ML IV SCH (09:30)
[2020-11-14] MEDS ORDERED: ONDANSETRON HCL 4 MG/2 ML VIAL IVP PRN (09:30)
[2020-11-14] MEDS ORDERED: MEPERIDINE HCL/PF 25 MG/ML DISP.SYRIN IVP PRN (09:30)
[2020-11-14] MEDS ORDERED: ePHEDrine sulfate 50 MG/ML VIAL IVP PRN (09:30)
[2020-11-14] MEDS ORDERED: HYDROmorphone 1 MG/ML INJ. CARTRIDGE IM PRN (09:45)
[2020-11-14] MEDS ORDERED: HYDROcodone/ACETAMIN 5-325 MG TAB (NORCO/ VICODIN) PO PRN (09:45)
[2020-11-14 11:10] VITALS: BP_SYST 92
--- NOTE | 2020-11-14 11:10 | NUR ---
ARRIVED FROM OR @ 1110 AM VIA GURNEY. ALERT, AWAKE AND CONSCIOUS , LOOKS LETHARGIC .VITAL SIGNS TAKEN. REPORT GIVEN BY ROGERIO ASCENCIO. O2 @ 2L/NC ADMINISTERED. DRESSING DRY. WILL MONITOR.
[2020-11-14 11:45] VITALS: BP_SYST 100
--- NOTE | 2020-11-14 14:50 | NUR ---
@ 1450 patients vital signs stable, still resting at this time. no complaints of pain .maitained on left side lying position. dressing dry and intact.
--- NOTE | 2020-11-14 15:00 | NUR ---
INCENTIVE SPIROMETER PROVIDED, PATIENT CLAIMED KNOW HOW TO USE IT. DEMONSTRATED AND WELL DONE.
[2020-11-14 15:35] VITALS: BP_SYST 117
[2020-11-14] MEDS: levoFLOXacin 500 MG TABLET PO SCH (17:37)
--- NOTE | 2020-11-14 17:46 | NUR ---
patient is awake. complained of pain at the rectum.pad still dry no stained of blood noted. pain meds given as ordered. ate dinnr good. afebrile. hydration reinforce.
[2020-11-14 18:19] VITALS: BP_SYST 117
[2020-11-14] MEDS ORDERED: HYDR-3917 PO (18:30)
[2020-11-14] MEDS ORDERED: DOCU-144 PO (18:30)
[2020-11-14] MEDS ORDERED: LIDO113G3 TP (18:32)
== END 2020-11-14 19:55 | disposition home or self-care (01) | DRG 254 ==
LOC: SED 14:51 → SMU 11-12 01:23
PROVIDERS: ADMIT Preventive Medicine Preventive Medicine/Occupational Environmental Medicine; ATTEND Preventive Medicine Preventive Medicine/Occupational Environmental Medicine
PROC: 0JBB0ZZ Excision of Perineum Subcutaneous Tissue and Fascia, Open Approach (ICD-10-PCS; principal; 2020-11-14 08:00)
DX: K61.0 Anal abscess (principal); D72.829 Elevated white blood cell count, unspecified; Z20.822 Contact with and (suspected) exposure to COVID-19; Z79.2 Long term (current) use of antibiotics; Z79.899 Other long term (current) drug therapy
CPT/HCPCS: 36415; 76376; 80048; 80053; 81003; 83605; 84703; 85025; 85610-TC; 85651-TC; 85730-TC; 86140; 86886; 86900; 86901; 87040-TC; 88304; 96361; 96365; 96368; 96375; 99285; C9399; J0131; J1100; J2250; J2270; J2405; J2543; J2704; J2765; J3010; J3490; J7120

== ENCOUNTER 2021-05-07 12:58 | Emergency (ER) | payer OTHER, SELFPAY ==
[~2021-05-07] VITALS: Ht 149.9 cm; Wt 94.3 kg
[~2021-05-07 12:58] MED LIST changes: +DOCU-144 PO; +HYDR-3917 PO; -LEVO500T89 PO; +LEVO500T90 PO; +LIDO113G3 TP
[2021-05-07 13:34] VITALS: BP_SYST 103
[2021-05-07] MEDS ORDERED: CORTEARS EACH EAR (14:43)
[2021-05-07] MEDS ORDERED: IBUP-1969 PO (14:43)
[2021-05-07 15:24] VITALS: BP_SYST 103
== END 2021-05-07 15:22 | disposition home or self-care (01) ==
LOC: SED 12:58
DX: H66.93 Otitis media, unspecified, bilateral (principal); Z79.899 Other long term (current) drug therapy
CPT/HCPCS: 99283

== ENCOUNTER 2021-11-04 16:39 | Emergency (ER) | payer OTHER ==
[~2021-11-04] VITALS: Ht 149.9 cm; Wt 91.6 kg
[~2021-11-04 16:39] MED LIST changes: +CORTEARS EACH EAR; +LEVO-62 PO; -LEVO500T90 PO
[2021-11-04 17:00] VITALS: BP_SYST 112
[2021-11-04] MEDS ORDERED: DIPH25CA83 PO (17:40)
[2021-11-04] MEDS ORDERED: EPIN0.3P3 IM (17:40)
[2021-11-04] MEDS ORDERED: EPINEPHRINE HCL/PF 1 MG/ML AMP IM ONE (17:45)
--- NOTE | 2021-11-04 18:09 | NUR ---
BIBS WITH C/C OF NOTED RASHES TO LEFT SIDE ABDOMEN, LEFT LEG AND RIGHT SHOULDER AND BACK OF NECK. PT STATED SHE RECENTLY HAS A NEW CAT AND WAS WORRIED THAT THE RASH SHE HAS MAY BE RINGWORM. RASH DOES NOT RESEMBLE RINGWORM. VERY TINY RED DOTS NOTED WITHOUT BLISTERING. PT STATED THE RASH WAS ITCHY. RASH TO RIGHT SHOULDER OPEN RED DOTS FROM SCRATCHING. ADRENALINE GIVEN BY SONU AVITIA. NO S/S OF ANAPHYLAXIS NOTED. DENIES PAIN/SOB. NO NOTED SWELLING. CONDITION STABLE. WILL CONT TO MONITOR.
[2021-11-04 19:37] VITALS: BP_SYST 143
--- NOTE | 2021-11-04 19:40 | NUR ---
Pt d/c with VSS, a/ox4, steady gait. Pt states pain and itching is relieved, denies SOB or any other allergic symptoms. Pt states all d/c and Rx eduation given by RN and ERMD understood. Will f/u with PCP.
== END 2021-11-04 19:37 | disposition home or self-care (01) ==
LOC: SED 16:39
DX: L23.9 Allergic contact dermatitis, unspecified cause (principal); R21 Rash and other nonspecific skin eruption; Z79.899 Other long term (current) drug therapy
CPT/HCPCS: 99283; 81025; 96372; J0171

== ENCOUNTER 2022-05-29 22:07 | Emergency (ER) | payer OTHER ==
[~2022-05-29] VITALS: Ht 149.9 cm; Wt 83.9 kg
[~2022-05-29 22:07] MED LIST changes: +DIPH25CA83 PO; +EPIN0.3P3 IM
[2022-05-29 22:25] VITALS: BP_SYST 122
[2022-05-29] MEDS ORDERED: MEDR10TA72 PO (23:43)
[2022-05-29 23:44] VITALS: BP_SYST 122
[2022-05-29 23:45] LABS: BILIRUBIN,URINE NEGATIVE (NEGATIVE); BLOOD, URINE NEGATIVE (NEGATIVE); CLARITY/URINE SL CLOUDY (CLEAR); COLOR,URINE YELLOW (YELLOW); GLUCOSE,URINE NEGATIVE (NEGATIVE); KETONES,URINE NEGATIVE (NEGATIVE); LEUKOCYTE ESTERASE ,URINE NEGATIVE (NEGATIVE); NITRITE, URINE NEGATIVE (NEGATIVE); PH,URINE 8.5 (5.0-8.0); PROTEIN URINE NEGATIVE (NEGATIVE); UROBILINOGEN,URINE 0.2 (0.2-1.0)
== END 2022-05-29 23:44 | disposition home or self-care (01) ==
LOC: SED 22:07
DX: N93.8 Other specified abnormal uterine and vaginal bleeding (principal); R10.30 Lower abdominal pain, unspecified; Z79.899 Other long term (current) drug therapy
CPT/HCPCS: 76830-TC; 76857; 81003; 81025; 99284

== ENCOUNTER 2023-07-13 19:22 | Emergency (ER) | payer OTHER ==
[~2023-07-13] VITALS: Ht 149.9 cm; Wt 89.8 kg
[~2023-07-13 19:22] MED LIST changes: +MEDR10TA72 PO
[2023-07-13 19:45] VITALS: BP_SYST 138; PULSE 100; RESP 16; TEMP 98.3; O2SAT 98
[2023-07-13 20:22] LABS: CALCIUM 8.2 mg/dL (8.4-11.0); CREATININE 0.59 mg/dL (0.55-1.30); POTASSIUM 3.8 mmol/L (3.5-5.1)
[2023-07-13 20:26] LABS: BASOPHILS % (AUTO) 0.5 % (0.0-2.0); EOSINOPHILS # (AUTO) 0.3 K/uL (0.0-0.4); EOSINOPHILS % (AUTO) 3.9 % (0.0-4.0); HEMATOCRIT 38.6 % (36-48); HEMOGLOBIN 13.5 g/dL (12.0-16.0); LYMPHOCYTES % (AUTO) 34.7 % (20.5-51.5); MEAN CORPUSCULAR HEMOGLOBIN 28 pg (27-31); MEAN CORPUSCULAR HGB CONC 35 % (32-36); MEAN CORPUSCULAR VOLUME 80 fL (79.0-98.0); MONOCYTES # (AUTO) 0.7 K/uL (0.0-1.0); MONOCYTES % (AUTO) 8.5 % (1.7-9.3); NEUTROPHILS # (AUTO) 4.5 K/uL (1.8-7.7); NEUTROPHILS % (AUTO) 52.4 % (40.0-70.0); PLATELET COUNT (AUTO) 321 K/uL (130-430); RED BLOOD CELL COUNT(AUTO) 4.82 MIL/uL (4.2-6.2); RED CELL DISTRIBUTION WIDTH 13.9 % (9.0-15.0); WHITE BLOOD COUNT (AUTO) 8.5 K/uL (4.8-10.8)
[2023-07-13] MEDS ORDERED: SENN8.6T19 PO (21:46)
[2023-07-13 22:03] VITALS: BP_SYST 138; PULSE 100; RESP 16; TEMP 98.3; O2SAT 98
== END 2023-07-13 22:03 | disposition home or self-care (01) ==
LOC: SED 19:22
DX: K64.4 Residual hemorrhoidal skin tags (principal); K62.5 Hemorrhage of anus and rectum; R14.0 Abdominal distension (gaseous)
CPT/HCPCS: 36415; 80048; 81025; 85025; 99283